=== PATIENT | female | born 1990 | race Caucasian/White ===

== ENCOUNTER 2021-05-10 19:24 | Observation (INO) | payer MEDICAID ==
[~2021-05-10] VITALS: Ht 157.5 cm; Wt 62.6 kg
[~2021-05-10 19:24] MED LIST: IBUP-779 PO; IRON18TA PO; MULT-1101 PO
== END 2021-05-10 21:00 | disposition home or self-care (01) ==
LOC: 8 EST LDRP 19:24
PROVIDERS: ADMIT Obstetrics & Gynecology; ATTEND Obstetrics & Gynecology
DX: O42.913 Preterm premature rupture of membranes, unspecified as to length of time between rupture and onset of labor, third trimester (principal); Z3A.36 36 weeks gestation of pregnancy
CPT/HCPCS: 59025; G0378; 99281